=== PATIENT | female | born 1975 | race Caucasian/White ===

== ENCOUNTER 2017-07-19 13:12 | Emergency (ER) | payer MEDICAID ==
--- NOTE | 2017-07-19 13:30 | ED Physician Chart ---
ED Chief Complaint/HPI - Patient Information Date Seen:: 07/19/17 Time Seen:: 13:20 Chief Complaint:: Pt is here to request sutures to be removed in R forearm and R hand. History of Present Illness:: Pt sustained laceration in distal right forearm and medial aspect of R hand when a door glass broke while she was pushing it on 07/07/17 while she was in [place]. Pt had laceration repairs with suturing on the same day. Pt feels much better and the wound has been healing well. No fever. Pt can move her R wrist and her entire RUE without diffiulty or pain. Last tetanus immunization is unknown. Pt requests to have tetanus immunization. Allergies:: Allergies Allergy/AdvReac Type Severity Reaction Status Date / Time No Known Allergies Allergy Verified 07/19/17 13:16 Vitals:: Vital Signs - 8 hr 07/19/17 13:12 Temp 97.6 F HR 63 RR 16 BP 123/81 O2 Sat % 99 Historian:: Patient Family MD/PCP:: Dr. Kam LMP:: 07/18/17 Review:: Nurse's Note Reviewed ED Review of Systems - Review of Systems General/Constitutional: No fever, No weight loss, No weakness, No edema, No loss of appetite Skin: No bruising, Other (Healing wounds in R forearm and R hand.) Head: No headache, No light-headedness Eyes: No loss of vision, No pain ENT: No earache, Sore throat Neck: No neck pain, No stiffness, No mass noted Cardio Vascular: No chest pain, No palpitations, No edema Pulmonary: No SOB, No cough, No wheezing GI: No nausea, No vomiting, No diarrhea, No pain G/U: No dysuria, No frequency, No hematuria Parts Administrator: No vaginal discharge, No abnormal vaginal bleed Musculoskeletal: No bone or joint pain Endocrine: No polyuria, No polydipsia Psychiatric: No prior psych history Hematopoietic: No bruising, No lymphadenopathy Allergic/Immuno: No urticaria, No angioedema Neurological: No syncope, No focal symptoms, No weakness, No paresthesia, No headache, No dizziness, No confusion ED Past Medical History - Past Medical History Past Medical History: No significant medical hx Family History: Diabetes Melitus (mother), HTN (Mother.) Social History: Non Smoker, Alcohol (occasional), No Drug Use, Single, Other ( lives with her mother) Surgical History: (about 10 y/a) Psychiatricy History: None Medication: None Family Medical History - Family Member Mother History Unknown: Yes ED Physical Exam - Physical Examination General/Constitutional: Awake, Well-developed, well-nourished, Alert, No distress, GCS 15, Non-toxic appearing, Ambulatory Other Gen/Cons comments:: Breathes comfortably, speaks clearly, ambulates without difficulty and interacts normally. Head: Atraumatic Eyes: Lids, conjuctiva normal, PERRL, EOMI Skin: Well hydrated, No lymphadenopathy Other Skin comments:: see also Extremities exam. ENMT: External ears, nose nl, Nasal exam nl, Oropharynx nl Neck: Nontender, Full ROM w/o pain, No nuchal rigidity, No mass, No stridor Respiratory: Nl effort/Exclusion, Clear to Auscultation, No Wheeze/Rhonchi/Rales Cardio Vascular: RRR GI: No tenderness/rebounding/guarding, No organomegaly, Normal BS's, Nondistended, No mass/bruits Other GI comments:: Abdomen is soft. Other Extremities comments:: RUE: FROM of all joints, including R wrist and R hand. Nontender. There are 2 well healed wounds in distal volar aspect of distal R forearm with [address]. One wound is V-shaped and is appox 4 cm in length. The other wound proximal to it and is approx 2 cm in length. Wounds are well healed with dry scab. No erythema, swelling, tenderness or exudate. There is another approx. 1 cm well healed wound at medial aspect of R hand with [address] No erythema, swelling, tenderness or exudate. No motor/sensory/vascular deficit. Good distal pulse and capillary refill. Neuro/Psych: Alert/oriented (oriented x 3), Judgement/insight normal, Mood normal, Normal gait, No focal deficits ED Septic Shock - . Is Septic Shock (SBP<90, OR Lactate>4 mmol\L) present?: No - <6hrs of presentation: Vital Signs: Vital Signs - 8 hr 07/19/17 13:12 Temp 97.6 F HR 63 RR 16 BP 123/81 O2 Sat % 99 ED Reassessment (Disposition) - Reassessment Reassessment:: 1440 Pt's wounds in distal R forearm and medial aspect of R hand were cleansed with alcohol prep. 15 sutures were removed from distal R forearm and 2 sutures were removed from medial aspect of R hand. Neosporin ointment is to be applied to freshly healed wounds. Pt requests to go home now. Aftercare instructions have been given. Reassessment Condition:: Improved - Diagnosis Diagnosis:: Well healed wounds in distal R forearm and medial aspect of R hand without sign of infection. S/P suture removal. - Aftercare/Follow up Instructions Aftercare/Follow-Up Instructions:: Refer to Discharge Instructions Notes:: Keep freshly healed wound areas clean and dry. Wound care instructions given. F/U with PCP Dr. Kam in 2-3 days for recheck. Return to ER immediately if condition worsens or if any further questions/problems. Medication Prescribed:: None - Patient Disposition Discharge/Transfer:: Home Time:: 14:10 Condition at Disposition:: Stable, Improved ED Discharge Plan - Patient Disposition Admit/Discharge/Transfer: PT DISCHARGED HOME Condition at Disposition: Improved Instructions: Laceration Care, Adult, Sutured Wound Care, [id number]
[2017-07-19] MEDS ORDERED: Triple Antibiotic 0.94 gm Pkt TP STA (13:58)
[2017-07-19] MEDS ORDERED: Triple Antibiotic 0.94 gm Pkt TP ONE (14:03)
== END 2017-07-19 14:28 | disposition home or self-care (01) ==
LOC: ER 13:12
DX: S51.811A Laceration without foreign body of right forearm, initial encounter (principal); S61.411A Laceration without foreign body of right hand, initial encounter; W25.XXXA Contact with sharp glass, initial encounter; Y93.89 Activity, other specified; Y92.89 Other specified places as the place of occurrence of the external cause; Y99.8 Other external cause status
CPT/HCPCS: Z7502

== ENCOUNTER 2018-09-28 19:13 | Emergency (ER) | payer MEDICAID ==
[2018-09-28] MEDS ORDERED: Morphine Sulfate 2 mg/mL 1mL Syr IV STA (19:39)
[2018-09-28] MEDS ORDERED: Morphine Sulfate 2 mg/mL 1mL Syr ONE (19:41)
[2018-09-28] MEDS ORDERED: cefTRIAXone 1 GM in Sodium Chloride 0.9% 50 ML IV ONE (20:25)
--- NOTE | 2018-09-29 08:54 | Diagnostic Imaging Report ---
Head CT without intravenous contrast Indication: Acute onset of worst headache Comparison: None Technique: Axial images were obtained from the vertex to the skull base without IV contrast. Coronal reconstructions were made. Total DLP: 650, CTDI38.4 FINDINGS: Images of the brain obtained without contrast demonstrate no acute hemorrhage. No mass lesions identified. The ventricles and basal cisterns are patent. The massey-white matter differentiation is preserved. There is no mass effect or midline shift. No skull fractures identified. No soft tissue swelling. Mucus retention cysts versus polyps of the bilateral maxillary sinuses are noted. IMPRESSION: No acute intracranial abnormality. Mucous retention cysts versus polyps of the bilateral maxillary sinuses.
--- NOTE | 2018-10-22 07:44 | ED Physician Chart ---
ED Chief Complaint/HPI - Patient Information Date Seen:: 09/28/18 Time Seen:: 19:15 Chief Complaint:: left HERNANDEZ (acute onset) History of Present Illness:: left HERNANDEZ (acute onset) while she was driving home and after she had had local anesthesia and a dental procedure. Worst HERNANDEZ of her life. Allergies:: Allergies Allergy/AdvReac Type Severity Reaction Status Date / Time No Known Allergies Allergy Verified 09/28/18 19:26 Historian:: Patient, Family Member Review:: Nurse's Note Reviewed ED Review of Systems - Review of Systems General/Constitutional: No fever, No chills, No weight loss, No weakness, No diaphoresis, No edema, No loss of appetite Skin: No skin lesions, No rash, No bruising Head: Headache, No light-headedness Eyes: No loss of vision, No pain, No diplopia ENT: No earache, No nasal drainage, No sore throat, No tinnitus Neck: No neck pain, No swelling, No thyromegaly, No stiffness, No mass noted Cardio Vascular: No chest pain, No palpitations, No PND, No orthopnea, No edema Pulmonary: No SOB, No cough, No sputum, No wheezing GI: No nausea, No vomiting, No diarrhea, No pain, No melena, No hematochezia, No constipation, No hematemesis G/U: No dysuria, No frequency, No hematuria Musculoskeletal: No bone or joint pain, No back pain, No muscle pain Endocrine: No polyuria, No polydipsia Psychiatric: No prior psych history, No depression, No anxiety, No suicidal ideation Hematopoietic: No bruising, No lymphadenopathy Allergic/Immuno: No urticaria, No angioedema Neurological: No syncope, No focal symptoms, No weakness, No paresthesia, No headache, No seizure, No dizziness, No confusion, No vertigo ED Past Medical History - Past Medical History Obtainable: Yes Past Medical History: HTN Family Medical History - Family Member Mother History Unknown: Yes ED Physical Exam - Physical Examination General/Constitutional: Awake, Well-developed, well-nourished, Alert, GCS 15, Non-toxic appearing, Ambulatory Other Gen/Cons comments:: terrible left sided headache (worst headache of his life) Head: Atraumatic Eyes: Lids, conjuctiva normal, PERRL, EOMI Skin: Nl inspection ENMT: External ears, nose nl, TM canals nl, Nasal exam nl, Lips, teeth, gums nl , Oropharynx nl, Tonsils nl Neck: Nontender, No nuchal rigidity, No stridor Respiratory: Nl effort/Exclusion, Clear to Auscultation, No Wheeze/Rhonchi/Rales Cardio Vascular: RRR, No murmur, gallop, rubs, NL S1 S2 GI: No tenderness/rebounding/guarding, No organomegaly, No hernia, Normal BS's, Nondistended, No mass/bruits, No McBurney tenderness : No CVA tenderness Extremities: No tenderness or effusion, Full ROM, normal strength in all extremities, No edema, Normal digits & nails Neuro/Psych: Alert/oriented, Normal sensory exam, Normal motor strength, Judgement/insight normal, Mood normal, Normal gait, No focal deficits Misc: Normal back, No paraspinal tenderness ED Assessment - Assessment General Assessment: CT read out as negative except for mucous retention cyst and bilateral maxillary sinus disease. ED Septic Shock - . Is Septic Shock (SBP<90, OR Lactate>4 mmol\L) present?: No ED Reassessment (Disposition) - Reassessment Reassessment Condition:: Improved - Diagnosis Diagnosis:: Left sided headache, resolved. - Aftercare/Follow up Instructions Aftercare/Follow-Up Instructions:: Refer to Discharge Instructions Notes:: follow up with your primary care physician and also with your dentist. Medication Prescribed:: take the medications written for as needed. - Patient Disposition Discharge/Transfer:: Home Condition at Disposition:: Stable, Improved
== END 2018-09-28 21:09 | disposition home or self-care (01) ==
LOC: ER 19:13
DX: R51 Headache (principal); I10 Essential (primary) hypertension
CPT/HCPCS: 99284; 96374; 96375; 70450; J2270; J1885; Z7502